=== PATIENT | female | born 1960 | race Caucasian/White ===

== ENCOUNTER 2019-07-10 15:51 | Inpatient (IN) | payer OTHER ==
[2019-07-10 18:04] VITALS: BMI 40.0
--- NOTE | 2019-07-10 19:55 | HP ---
CIWA Score Nausea/Vomitin-No Nausea/No Vomiting Muscle Tremors: None Anxiety: 1-Mildly Anxious Agitation: 0-Normal Activity Paroxysmal Sweats: No Perspiration Orientation: 0-Oriented Tacttile Disturbances: 0-None Auditory Disturbances: 1-Very Mild Visual Disturbances: 0-None Headache: 0-None Present CIWA-Ar Total Score: 2 - Admission Criteria OASAS Guidelines: Admission for Medically Managed Detox: Requires at least one of the followin. CIWA greater than 12 2. Seizures within the past 24 hours 3. Delirium tremens within the past 24 hours 4. Hallucinations within the past 24 hours 5. Acute intervention needed for co occurring medical disorder 6. Acute intervention needed for co occurring psychiatric disorder 7. Severe withdrawal that cannot be handled at a lower level of care (continued vomiting, continued diarrhea, abnormal vital signs) requiring intravenous medication and/or fluids 8. Admission ROS S - HPI Allergies/Adverse Reactions: Allergies Allergy/AdvReac Type Severity Reaction Status Date / Time No Known Allergies Allergy Verified 07/10/19 17:55 History of Present Illness: pt her reporting etoh use , claims 1 bottle wine /day since 12 years ago , latest use Saturday , had tremors the next day , currently asymptomatic. Denies blackouts, seizures , reports tremors if not drinking alcohol. currently reports etoh cravings pmHX : thrombocytopenia , anemia PSHX : R knee , R ankle x 2 , tonsillectomy , gastric bypass ( 2004) , C-sx x 2 , appy , marlo, lipoma r axilla, tummy tuck Exam Limitations: No Limitations - Ebola screening Have you traveled outside of the country in the last 21 days: No Have you had contact with anyone from an Ebola affected area: No Do you have a fever: No - Review of Systems Constitutional: No Symptoms Reported EENT: reports: No Symptoms Reported Respiratory: reports: No Symptoms reported Cardiac: reports: No Symptoms Reported GI: reports: See HPI : reports: No Symptoms Reported Musculoskeletal: reports: See HPI, Joint Pain (r ankle sometimes) Integumentary: reports: See HPI, Bruising Neuro: reports: No Symptoms reported Endocrine: reports: No Symptoms Reported Hematology: reports: See HPI, Easy Bruising Psychiatric: reports: Orientated x3, Anxious Patient History - Smoking Cessation Smoking history: Never smoked - Substances abused Alcohol Substance route: Oral Frequency: Daily Amount used: 2 big bottles wine 6 or 7 beers. Age of first use: 26 Date of last use: 07/07/19 Admission Physical Exam BHS - Vital Signs Vital Signs: Vital Signs - 24 hr 07/10/19 07/10/19 17:56 18:58 Temperature 97.4 F L 97.4 F L Pulse Rate 93 H 93 H Respiratory 16 16 Rate Blood Pressure 132/76 132/76 - Physical General Appearance: Yes: No Apparent Distress, Anxious HEENTM: Yes: EOMI, Hearing grossly Normal, Normocephalic, Normal Voice Respiratory: Yes: Chest Non-Tender, Lungs Clear, Normal Breath Sounds, No Respiratory Distress, No Accessory Muscle Use Neck: Yes: No masses,lesions,Nodules, Trachea in good position Cardiology: Yes: Regular Rhythm, Regular Rate, S1, S2 Abdominal: Yes: Soft, Protuberent Musculoskeletal: Yes: Joint Stiffness (r ankle), Joint swelling (r ankle) Extremities: Yes: Swelling (r ankle) Neurological: Yes: Fully Oriented, Alert, Motor Strength 5/5, Normal Mood/Affect Integumentary: Yes: Warm, Other (scattered small ecchymotic areas bilateral LE) - Diagnostic (1) Alcohol use disorder, mild, in early remission Current Visit: Yes Status: Acute Breathalyzer - Breathalyzer Breathalyzer: 0 Urine Drug Screen - Test Device Lot number: [id number] Expiration date: 03/25/21 - Control Is test valid?: Yes - Results Drug screen NEGATIVE: Yes Inpatient Rehab Admission - Rehab Decision to Admit Inpatient rehab admission?: Yes - Initial Determination Are CD services needed?: Yes Free of communicable disease: Yes Not in need of hospitalization: Yes - Rehab Admission Criteria Previous failed treatment: No Poor recovery environment: No Comorbidities: No Lacks judgement: Yes Patient is meeting Inpatient Rehab admission criteria:: Yes
[2019-07-10] MEDS ORDERED: guaiFENesin 200 MG/10 ML 10 ML UNIT-DOSE CUPS PO PRN (19:58)
[2019-07-10] MEDS ORDERED: MAGNESIUM HYDROX 2400MG/30ML ORAL SUSPENSION 30 ML CUP PO PRN (19:58)
[2019-07-10] MEDS ORDERED: MAGNESIUM CITRATE 300 ML BOTTLE PO PRN (19:58)
[2019-07-10] MEDS ORDERED: MAG HYDROX/AL HYDROX/SIMETH 30 ML UNIT-DOSE CUP PO PRN (19:58)
[2019-07-10] MEDS ORDERED: LOPERAMIDE HCL 2 MG CAPSULE PO PRN (19:58)
[2019-07-10] MEDS ORDERED: MENTHOL/PHENOL 1 EACH UD MM PRN (19:58)
[2019-07-10] MEDS ORDERED: P-EPHED 60MG/TRIPROLIDI 2.5MG TABLET PO PRN (19:58)
[2019-07-10] MEDS: MELATONIN 5 MG TABLETS PO PRN (21:25)
[2019-07-10] MEDS: THIAMINE HCL 100 MG TABLET (FP) PO SCH (21:25)
[2019-07-10] MEDS ORDERED: TUBERCULIN PPD 5 TU/0.1ML VIAL ID ONE ×2 (21:27→23:09)
[2019-07-10] MEDS: ALBUTEROL SO4 8 GM HFA INHALER IH SCH (21:28)
[2019-07-10] MEDS ORDERED: ALBUTEROL SULFATE PO SCH (22:00)
[2019-07-11] MEDS: ALBUTEROL SO4 8 GM HFA INHALER IH SCH ×5 (06:56→21:15)
[2019-07-11] MEDS ORDERED: PATIENT'S OWN MEDICATION (NON-FORMULARY) (Omeprazole [Omeprazole] 40 MG) PO SCH (10:00)
[2019-07-11] MEDS: PANTOPRAZOLE 40 MG TABLET (FP) PO SCH (10:34)
[2019-07-11] MEDS: PRENATAL VITAMINS W/ FOLIC ACID TABLET (FP) PO SCH (10:34)
[2019-07-11 10:39] LABS: HEMATOCRIT 23.7 % (32.4-45.2); HEMOGLOBIN 7.9 GM/dL (10.7-15.3); MCHC 33.4 g/dl (32.0-36.0); MEAN CELL VOLUME 122.4 fl (80-96); MEAN PLT VOLUME 9.1 fl (7.5-11.1); RBC 1.94 M/mm3 (3.60-5.2); RDW 16.8 % (11.6-15.6); WHITE BLOOD COUNT 2.4 K/mm3 (4.0-10.0)
[2019-07-11 10:42] LABS: ALBUMIN 2.8 g/dl (3.4-5.0); BILIRUBIN,TOTAL 0.7 mg/dL (0.2-1); BLOOD UREA NITROGEN 11.6 mg/dL (7-18); CALCIUM 8.1 mg/dL (8.5-10.1); CREATININE 0.4 mg/dL (0.55-1.3); POTASSIUM 3.5 mmol/L (3.5-5.1)
[2019-07-11] MEDS ORDERED: PT OWN MED DRAWER 7, Y5N ONE (10:51)
[2019-07-11 11:02] LABS: MCH 40.9 pg (25.7-33.7); PLATELET COUNT 13 K/MM3 (134-434)
[2019-07-11] MEDS ORDERED: ACETAMINOPHEN 325 MG TABLET (FP) PO PRN (12:38)
[2019-07-11] MEDS: COPPER GLUCONATE 2 MG PO SCH (12:43)
--- NOTE | 2019-07-11 16:25 | CONSULT ---
[facility] Psychiatric Consult - Data Date of interview: 07/11/19 Admission source: Self-referral. Identifying data: First visit to [facility] and direct admission to [address] for this 59 y/o [place]-born female for rehabilitative care to address alcohol dependence co-morbid with MDD + Anxiety Disorder. Patient is interviewed in the presence of a director of pulmonary unit, director community health nursing Ms Tellez (with patient's verbal authorization). She is (now ), mother of three , domiciled, unemployed and supported by relatives. Substance Abuse History: Discussed with the patient. Details in current [facility] report as follows : Smoking history: Never smoked. Substances abused. Alcohol. Substance route: Oral. Frequency: Daily. Amount used: 2 big bottles wine 6 or 7 beers. Age of first use: 26. Date of last use: 07/07/19 Medical History: Medical profile is remarkable for anemia, thrombocytopenia, obesity, antecedents of orthopedic injuries (right knee + right ankle), tonsillectomy, cholecystectomy, lipoma (tight axilla), gastric bypass (2004) and history of two sections. Psychiatric History: Patient denies history of psychiatric hospitalizations. She indicates, however, a brief history of outpatient psychiatric follow-up with a private psychiatrist for anxiety and insomnia. Dropped out of care several months ago. Patient denies history of suicide attempts. Physical/Sexual Abuse/Trauma History: Stresors : marital discord, financial issues, unemployment and alcohol addiction. Additional Comment: Negative toxicology. Mental Status Exam - Mental Status Exam Alert and Oriented to: Time, Place, Person Cognitive Function: Good Patient Appearance: Well Groomed (short stature, obese) Mood: Hopeful, Euthymic Affect: Appropriate, Normal Range Patient Behavior: Appropriate, Cooperative (friendly) Speech Pattern: Clear, Appropriate Voice Loudness: Normal Thought Process: Intact, Goal Oriented Thought Disorder: Not Present Hallucinations: Denies Suicidal Ideation: Denies Homicidal Ideation: Denies Insight/Judgement: Fair Sleep: Poorly, Difficulty falling asleep Appetite: Good Gait/Station: Normal Psychiatric Findings - Problem List ([place] 1, 2,3) (1) Alcohol use disorder, mild, in early remission Current Visit: Yes Status: Acute (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 Sleep hygiene. Support. Groups. MAT services : discussed in this session. AA meetings. Motivational counseling. Insomnia is addressed with mirtazapine 7.5 mg po hs. Side effects/benefits discussed with patient. Ms Dixon gave verbal consent to . Observation.
[2019-07-11] MEDS: hydrOXYzine PAMOATE 50 MG CAPSULE (FP) PO PRN (16:43)
[2019-07-11] MEDS: THIAMINE HCL 100 MG TABLET (FP) PO SCH (21:14)
[2019-07-11] MEDS: MELATONIN 5 MG TABLETS PO PRN (21:14)
[2019-07-11] MEDS: MIRTAZAPINE 15 MG TABLET (FP) PO SCH (21:15)
[2019-07-12] MEDS: ALBUTEROL SO4 8 GM HFA INHALER IH SCH ×5 (06:18→21:13)
--- NOTE | 2019-07-12 08:21 | PN ---
[facility] Progress Note Note: CLIENT SEEN FOR ABNORMAL PLATELET OF 13. CLIENT REPORTS HX BUT DOES NOT KNOW HER BASE LINE. SHE DENIES ANY COMPLAINTS TO INCLUDE NOSE BLEEDS, BLOODING STOOL, BLEEDING OF GUMS. PATIENT TEACHING REINFORCED. CLIENT MADE AWARE TO REPORTS ANY BLEEDING ISSUES IMMEDIATELY. P- WILL REPEAT CBC CLIENT THERE IS NO PREVIOUS LABS TO COMPARE BLEEDING PRECAUTION MONITOR CLINICALLY. CONSIDER TRANSFER TO [facility] FOR FURTHER EVAL AFTER REPEAT LABS. Abnormal Lab Results 07/11/19 07/11/19 07:55 07:55 WBC 2.4 L RBC 1.94 L Hgb 7.9 L Hct 23.7 L MCV 122.4 H MCH 40.9 H RDW 16.8 H Plt Count 13 L* Anion Gap 6 L Creatinine 0.4 L Calcium 8.1 L Alkaline Phosphatase 139 H Total Protein 6.0 L Albumin 2.8 L
[2019-07-12] MEDS: PRENATAL VITAMINS W/ FOLIC ACID TABLET (FP) PO SCH (10:05)
[2019-07-12] MEDS: COPPER GLUCONATE 2 MG PO SCH (10:06)
[2019-07-12] MEDS: PANTOPRAZOLE 40 MG TABLET (FP) PO SCH (10:06)
[2019-07-12] MEDS: hydrOXYzine PAMOATE 50 MG CAPSULE (FP) PO PRN ×2 (15:36→19:44)
[2019-07-12] MEDS: MIRTAZAPINE 15 MG TABLET (FP) PO SCH (21:14)
[2019-07-12] MEDS: THIAMINE HCL 100 MG TABLET (FP) PO SCH (21:14)
[2019-07-12] MEDS: MELATONIN 5 MG TABLETS PO PRN (21:14)
[2019-07-13] MEDS: ALBUTEROL SO4 8 GM HFA INHALER IH SCH (07:11)
[2019-07-13] MEDS: hydrOXYzine PAMOATE 50 MG CAPSULE (FP) PO PRN (07:15)
[2019-07-13] MEDS ORDERED: ALBUTEROL SO4 8 GM HFA INHALER IH PRN (08:50)
[2019-07-13] MEDS: COPPER GLUCONATE 2 MG PO SCH (10:13)
[2019-07-13] MEDS: PANTOPRAZOLE 40 MG TABLET (FP) PO SCH (10:13)
[2019-07-13] MEDS: PRENATAL VITAMINS W/ FOLIC ACID TABLET (FP) PO SCH (10:13)
[2019-07-13 12:17] LABS: BASO % 0.2 % (0-2.0); EOS % 0.3 % (0-4.5); HEMATOCRIT 23.1 % (32.4-45.2); HEMOGLOBIN 7.8 GM/dL (10.7-15.3); LYMPH % 68.2 % (8-40); MCHC 33.6 g/dl (32.0-36.0); MEAN CELL VOLUME 122.9 fl (80-96); MEAN PLT VOLUME 8.5 fl (7.5-11.1); MONO % 7.4 % (3.8-10.2); NEUT % 23.9 % (42.8-82.8); RBC 1.88 M/mm3 (3.60-5.2); RDW 17.1 % (11.6-15.6); WHITE BLOOD COUNT 2.1 K/mm3 (4.0-10.0)
[2019-07-13 12:19] LABS: MCH 41.4 pg (25.7-33.7)
[2019-07-13 12:22] LABS: PLATELET COUNT 18 K/MM3 (134-434)
--- NOTE | 2019-07-13 12:48 | PN ---
[facility] Progress Note Note: Patient is a 59 year old female admitted to rehab for alcohol dependence. This is first admission to [facility]. Patient has hx of drinking one bottle of wine and 6-7 beers daily x 12 years. Denies hx of blackouts, seizures. + hx of tremors. Last drink 07/06/19. PMH: anemia, low plts, gastric bypass in 2004. Treated in [facility]. Patient seen for abnormal labs. ROS: + nausea with one episode of vomiting today (unwitnessed), mild dizziness and reports feeling tired. Vital Signs Temperature 97.9 F 07/13/19 07:42 Pulse Rate 88 07/13/19 07:42 Respiratory Rate 18 07/13/19 07:42 Blood Pressure 115/69 07/13/19 07:42 O2 Sat by Pulse Oximetry (%) Laboratory Tests 07/11/19 07/11/19 07/11/19 07:55 07:55 07:55 WBC 2.4 L RBC 1.94 L Hgb 7.9 L Hct 23.7 L MCV 122.4 H MCH 40.9 H MCHC 33.4 RDW 16.8 H Plt Count 13 L* MPV 9.1 Absolute Neuts (auto) Neutrophils % Lymphocytes % Monocytes % Eosinophils % Basophils % Nucleated RBC % Manual Slide Review Smear reviewed Platelet Comment No clumping noted Sodium 139 Potassium 3.5 Chloride 106 Carbon Dioxide 26 Anion Gap 6 L BUN 11.6 Creatinine 0.4 L Est GFR (CKD-EPI)AfAm 133.07 Est GFR (CKD-EPI)NonAf 114.81 Random Glucose 91 Calcium 8.1 L Total Bilirubin 0.7 AST 20 ALT 17 Alkaline Phosphatase 139 H Total Protein 6.0 L Albumin 2.8 L RPR Titer Nonreactive 07/13/19 08:00 WBC 2.1 L RBC 1.88 L Hgb 7.8 L Hct 23.1 L MCV 122.9 H MCH 41.4 H MCHC 33.6 RDW 17.1 H Plt Count 18 L* D MPV 8.5 Absolute Neuts (auto) 0.5 L Neutrophils % 23.9 L Lymphocytes % 68.2 H Monocytes % 7.4 Eosinophils % 0.3 Basophils % 0.2 Nucleated RBC % 0 Manual Slide Review Platelet Comment Sodium Potassium Chloride Carbon Dioxide Anion Gap BUN Creatinine Est GFR (CKD-EPI)AfAm Est GFR (CKD-EPI)NonAf Random Glucose Calcium Total Bilirubin AST ALT Alkaline Phosphatase Total Protein Albumin RPR Titer PE: alert and oriented x 3 skin warm and dry +perrla, eoms intact bl sclera mildly icteric bl car s1s2, rrr resp cta bl gi nt, nd, bs+ ext full rom, no tremors amb ad mima A/P: Anemia Thrombocytopenia Transfer to [facility] ED for evaluation Report given to Dr. Cowan
[2019-07-13 12:56] LABS: ANISOCYTOSIS 1+; MACROCYTOSIS 3+; PLATELET ESTIMATE DECREASED
[2019-07-13 13:07] VITALS: BP 123/76; PULSE 98; TEMP 97.3
== END 2019-07-13 22:20 | disposition short-term general hospital (02) | DRG 772 ==
LOC: YASAS 15:51 → Y3E 19:43
PROVIDERS: ADMIT Neuromusculoskeletal Medicine & OMM; ATTEND Neuromusculoskeletal Medicine & OMM
PROC: HZ42ZZZ Group Counseling for Substance Abuse Treatment, Cognitive-Behavioral (ICD-10-PCS; principal; 2019-07-10)
DX: F10.20 Alcohol dependence, uncomplicated (principal); F10.280 Alcohol dependence with alcohol-induced anxiety disorder; G47.00 Insomnia, unspecified; D69.6 Thrombocytopenia, unspecified; D64.9 Anemia, unspecified; D17.1 Benign lipomatous neoplasm of skin and subcutaneous tissue of trunk; E66.9 Obesity, unspecified; Z68.41 Body mass index [BMI] 40.0-44.9, adult; Z98.84 Bariatric surgery status; Z90.49 Acquired absence of other specified parts of digestive tract
CPT/HCPCS: 36415; 80053; 85025; 85027; 86593

== ENCOUNTER 2019-07-13 13:59 | Inpatient (IN) | payer OTHER ==
[2019-07-13 14:21] VITALS: BMI 39.8
[2019-07-13 15:36] LABS: BASO % 0.1 % (0-2.0); EOS % 0.2 % (0-4.5); HEMOGLOBIN 7.5 GM/dL (10.7-15.3); LYMPH % 65.3 % (8-40); MCHC 32.7 g/dl (32.0-36.0); MEAN CELL VOLUME 123.8 fl (80-96); MEAN PLT VOLUME 8.6 fl (7.5-11.1); MONO % 9.7 % (3.8-10.2); NEUT % 24.7 % (42.8-82.8); RBC 1.86 M/mm3 (3.60-5.2); RDW 16.8 % (11.6-15.6); WHITE BLOOD COUNT 2.4 K/mm3 (4.0-10.0)
[2019-07-13 15:41] LABS: MCH 40.4 pg (25.7-33.7)
[2019-07-13 15:43] LABS: PLATELET COUNT 15 K/MM3 (134-434)
[2019-07-13 15:55] LABS: PROTHROMBIN TIME (PATIENT) 11.8 SEC (9.7-13.0)
[2019-07-13 15:59] LABS: ALBUMIN 2.7 g/dl (3.4-5.0); BILIRUBIN,TOTAL 0.5 mg/dL (0.2-1); BLOOD UREA NITROGEN 10.7 mg/dL (7-18); CALCIUM 8.4 mg/dL (8.5-10.1); CREATININE 0.5 mg/dL (0.55-1.3); TOT PROT 5.8 g/dl (6.4-8.2)
--- NOTE | 2019-07-13 16:11 | PDOC ---
Documentation entered by Andrea Simpson SCRIBE, acting as scribe for Gary Nation MD. aGry Nation MD: This documentation has been prepared by the Calvin scott Daniel, SCRIBE, under my direction and personally reviewed by me in its entirety. I confirm that the documentation accurately reflects all work, treatment, procedures, and medical decision making performed by me. Attending Attestation - Resident Resident Name: Jorge Walker - ED Attending Attestation I have performed the following: I have examined & evaluated the patient, The case was reviewed & discussed with the resident, I agree w/resident's findings & plan, Exceptions are as noted - HPI HPI: 07/13/19 15:42 The patient is a 59 year old female with a past medical history of anemia and gastric bypass here today from [facility] for evaluation of generalized weakness and rectal bleeding, as well as abnormal labs. The patient reports that she is in [facility] for alcohol detox (last drink 12 days ago). She complains of general weakness, lightheadedness, and exertional palpitations. Pt reports that today She also states that she noticed bright red blood in her stool 1 week ago as well as once today. Denies dark tarry stools. Denies hematemesis. Patient denies headache, lightheadedness. Denies fever, chills. Denies chest pain, shortness of breath. Denies nausea, diarrhea, abdominal pain. Per [facility] staff, pt had low Hb today, as well as low platelets on routine bloodwork. Allergies: NKA - Physicial Exam PE: 07/13/19 15:42 GENERAL: Awake, alert, and fully oriented, in no acute distress. HEAD: No signs of trauma EYES: PERRLA, EOMI, sclera anicteric, conjunctiva clear ENT: Auricles normal inspection, hearing grossly normal, nares patent, oropharynx clear without exudates. Moist mucosa NECK: Nontender, no stepoffs, Normal ROM, supple, no lymphadenopathy, JVD, or masses LUNGS: Breath sounds equal, clear to auscultation bilaterally. No wheezes, and no crackles HEART: Regular rate and rhythm, normal S1 and S2, no murmurs, rubs or gallops ABDOMEN: Soft, nontender, normoactive bowel sounds. No guarding, no rebound. No masses EXTREMITIES: Normal range of motion, no edema. No clubbing or cyanosis. No cords, erythema, or tenderness NEUROLOGICAL: Cranial nerves II through XII intact. 5/5 strength and sensation in all extremities, Normal speech, normal gait, normal cerebellar function SKIN: Warm, Dry, normal turgor, no rashes or lesions noted. - Medical Decision Making 07/13/19 16:17 59 F with pancytopenia as well as possible GI bleed. - Labs - Stool guaiac - Transfuse PRN - Admit
[2019-07-13 16:39] LABS: MACROCYTOSIS 2+; PLATELET ESTIMATE DECREASED
--- NOTE | 2019-07-13 17:25 | PDOC ---
History of Present Illness - General Chief Complaint: Weakness Stated Complaint: Abnormal Lab Results Time Seen by Provider: 07/13/19 14:17 History Source: Patient, Old Records (Rehab records) Exam Limitations: No Limitations - History of Present Illness Initial Comments: 07/13/19 17:24 59F with a PMH of MDD w/ anxiety, anemia, thrombocytopenia, obesity, antecedents of orthopedic injuries (right knee + right ankle), tonsillectomy, cholecystectomy, lipoma (tight axilla), gastric bypass (2004) who presents to the ER from the rehab facility (for EtOH) for thrombocytopenia and anemia. Pt denies fever, chills, nausea, vomiting but admits to hematochezia without hematuria, syncope, palpitations, CP, SOB. Past History - Past Medical History Allergies/Adverse Reactions: Allergies Allergy/AdvReac Type Severity Reaction Status Date / Time No Known Allergies Allergy Verified 07/13/19 14:17 Home Medications: Ambulatory Orders NK [No Known Home Medication] 07/13/19 Asthma: No Cardiac Disorders: No COPD: No Diabetes: No GI Disorders: No Disorders: No HTN: No Kidney Stones: No Seizures: No - Surgical History Abdominal Surgery: No Appendectomy: Yes Cardiac Surgery: No Cholecystectomy: No Lung Surgery: No Neurologic Surgery: No Orthopedic Surgery: Yes (RT KNEE) - Psycho Social/Smoking Cessation Hx Smoking History: Unknown if ever smoked Have you smoked in the past 12 months: No Information on smoking cessation initiated: No Hx Alcohol Use: Yes (alcohol everyday.) Drug/Substance Use Hx: No Hx Substance Use Treatment: No Review of Systems - Review of Systems Able to Perform ROS?: Yes Comments:: 07/13/19 17:53 GENERAL/CONSTITUTIONAL: No fever or chills. No weakness. HEAD, EYES, EARS, NOSE AND THROAT: No change in vision. No ear pain or discharge. No sore throat. CARDIOVASCULAR: No chest pain, palpitations, or lightheadedness. RESPIRATORY: No cough, wheezing, shortness of breath, or hemoptysis. GASTROINTESTINAL: + for hematochezia. No abdominal pain, nausea, vomiting, diarrhea, or constipation. GENITOURINARY: No dysuria, frequency, hematuria, or change in urination. MUSCULOSKELETAL: No joint or muscle swelling or pain. No neck or back pain. SKIN: No rash or lesions. NEUROLOGIC: No headache, numbness, tingling, focal weakness, loss of consciousness, or change in strength/sensation. ENDOCRINE: No increased thirst. No abnormal weight change. HEMATOLOGIC/LYMPHATIC: + for anemia and thrombocytopenia. ALLERGIC/IMMUNOLOGIC: No hives or skin allergy. Is the patient limited Yakut proficient: No *Physical Exam - Vital Signs Last Vital Signs Temp Pulse Resp BP Pulse Ox 98.0 F 85 16 112/50 L 100 07/13/19 14:00 07/13/19 14:00 07/13/19 14:00 07/13/19 14:00 07/13/19 15:24 - Physical Exam Comments: 07/13/19 17:54 GENERAL: Well developed, well nourished. Awake and alert. No acute distress. HEENT: Normocephalic, atraumatic. Hearing grossly normal. Moist mucous membranes. PERRLA, EOMI. No conjunctival pallor. Sclera are non-icteric. NECK: Supple. Full ROM. No JVD. CARDIOVASCULAR: Regular rate and rhythm. No murmurs, rubs, or gallops. PULMONARY: No evidence of respiratory distress. Lungs clear to auscultation bilaterally. No wheezing, rales or rhonchi. ABDOMINAL: Soft. Non-tender. Non-distended. No rebound or guarding. RECTAL: External hemorrhoids noted. No gross blood. GENITOURINARY: No CVA tenderness bilaterally. MUSCULOSKELETAL: Normal range of motion at all joints. No bony deformities or tenderness. EXTREMITIES: No cyanosis. No clubbing. No edema. No calf tenderness or swelling. SKIN: Warm and dry. Normal capillary refill. No rashes. No jaundice. NEUROLOGICAL: Alert, awake, appropriate. Cranial nerves 2-12 grossly intact. Normal speech. Gait is normal without ataxia. PSYCHIATRIC: Cooperative. Good eye contact. Appropriate mood and affect. ED Treatment Course - LABORATORY CBC & Chemistry Diagram: 07/13/19 14:52 07/13/19 14:52 - ADDITIONAL ORDERS Additional order review: Laboratory Results 07/13/19 07/13/19 07/13/19 14:52 14:52 14:52 PT with INR 11.80 INR 1.00 Sodium 140 Potassium 4.0 Chloride 107 Carbon Dioxide 28 Anion Gap 4 L BUN 10.7 Creatinine 0.5 L Est GFR (CKD-EPI)AfAm 123.65 Est GFR (CKD-EPI)NonAf 106.68 Random Glucose 74 Calcium 8.4 L Total Bilirubin 0.5 AST 20 ALT 16 Alkaline Phosphatase 135 H Total Protein 5.8 L Albumin 2.7 L Blood Type A POSITIVE Antibody Screen Negative 07/13/19 14:52 RBC 1.86 L MCV 123.8 H MCHC 32.7 RDW 16.8 H MPV 8.6 Neutrophils % 24.7 L Lymphocytes % 65.3 H Monocytes % 9.7 Eosinophils % 0.2 Basophils % 0.1 Medical Decision Making - Medical Decision Making 07/13/19 17:58 59F with MMP including anemia (after gastric bypass) and thrombocytopenia, sent from rehab for evaluation of anemia and thrombocytopenia. Pt admits to diffuse ecchymosis. Stool occult negative. Hgb 7.5. Platelets 15. Giving 1 unit platelets and admitting. 07/13/19 18:[address] Guzman for admission. Discharge - Discharge Information Problems reviewed: Yes Clinical Impression/Diagnosis: Thrombocytopenia Anemia Qualifiers: Anemia type: unspecified type Qualified Code(s): D64.9 - Anemia, unspecified Condition: Guarded - Admission Yes - Follow up/Referral Referrals: ON STAFF,NOT [Primary Care Provider] - - Patient Discharge Instructions - Post Discharge Activity
--- NOTE | 2019-07-13 20:53 | HP ---
Admitting History and Physical - Primary Care Physician PCP: Ewa Guzman - Admission History of Present Illness: 59 year old female with a past medical history of anemia and gastric bypass here today from [facility] for evaluation of generalized weakness and rectal bleeding, as well as abnormal labs. The patient reports that she is in [facility] for alcohol detox (last drink 12 days ago). She complains of general weakness, lightheadedness, and exertional palpitations. Pt reports that today She also states that she noticed bright red blood in her stool 1 week ago as well as once today. Denies dark tarry stools. Denies hematemesis. - Smoking History Smoking history: Unknown if ever smoked Have you smoked in the past 12 months: No - Alcohol/Substance Use Hx Alcohol Use: Yes (alcohol everyday.) Home Medications - Allergies Allergies/Adverse Reactions: Allergies Allergy/AdvReac Type Severity Reaction Status Date / Time No Known Allergies Allergy Verified 07/13/19 14:17 - Home Medications Home Medications: Ambulatory Orders NK [No Known Home Medication] 07/13/19 Physical Examination Vital Signs: Vital Signs Temperature 98.6 F 07/13/19 18:16 Pulse Rate 82 07/13/19 18:16 Respiratory Rate 19 07/13/19 18:16 Blood Pressure 113/58 L 07/13/19 18:16 O2 Sat by Pulse Oximetry (%) 100 07/13/19 18:16 Constitutional: Yes: No Distress HENT: Yes: Atraumatic Neck: Yes: Supple Cardiovascular: Yes: Regular Rate and Rhythm Respiratory: Yes: CTA Bilaterally Gastrointestinal: Yes: Normal Bowel Sounds Extremities: Yes: WNL Neurological: Yes: Alert, Oriented Labs: CBC, BMP 07/13/19 14:52 07/13/19 14:52 Problem List - Problems (1) Alcohol use disorder, mild, in early remission Assessment/Plan: was in rehab [facility] from rehab Code(s): F10.11 - ALCOHOL ABUSE, IN REMISSION (2) Anemia Assessment/Plan: possibly due to etoh? will transfuse heme consult Code(s): D64.9 - ANEMIA, UNSPECIFIED Qualifiers: Anemia type: unspecified type Qualified Code(s): D64.9 - Anemia, unspecified (3) Thrombocytopenia Assessment/Plan: transfuse platelets heme consult Code(s): D69.6 - THROMBOCYTOPENIA, UNSPECIFIED (4) Pancytopenia Code(s): D61.818 - OTHER PANCYTOPENIA Assessment/Plan Laboratory Tests 07/13/19 07/13/19 07/13/19 14:52 14:52 14:52 WBC 2.4 L RBC 1.86 L Hgb 7.5 L Hct 23.0 L MCV 123.8 H MCH 40.4 H MCHC 32.7 RDW 16.8 H Plt Count 15 L* MPV 8.6 Absolute Neuts (auto) 0.6 L Neutrophils % 24.7 L Neutrophils % (Manual) 19.0 L Band Neutrophils % 3.0 Lymphocytes % 65.3 H Lymphocytes % (Manual) 65.0 H Monocytes % 9.7 Monocytes % (Manual) 9 D Eosinophils % 0.2 Eosinophils % (Manual) 0.0 Basophils % 0.1 Basophils % (Manual) 0.0 Nucleated RBC % 1 H Platelet Estimate Decreased Platelet Comment No clumping noted Macrocytosis 2+ PT with INR 11.80 INR 1.00 Sodium 140 Potassium 4.0 Chloride 107 Carbon Dioxide 28 Anion Gap 4 L BUN 10.7 Creatinine 0.5 L Est GFR (CKD-EPI)AfAm 123.65 Est GFR (CKD-EPI)NonAf 106.68 Random Glucose 74 Calcium 8.4 L Total Bilirubin 0.5 AST 20 ALT 16 Alkaline Phosphatase 135 H Total Protein 5.8 L Albumin 2.7 L Stool Occult Blood Blood Type Antibody Screen 07/13/19 07/13/19 07/13/19 14:52 16:50 16:56 WBC RBC Hgb Hct MCV MCH MCHC RDW Plt Count MPV Absolute Neuts (auto) Neutrophils % Neutrophils % (Manual) Band Neutrophils % Lymphocytes % Lymphocytes % (Manual) Monocytes % Monocytes % (Manual) Eosinophils % Eosinophils % (Manual) Basophils % Basophils % (Manual) Nucleated RBC % Platelet Estimate Platelet Comment Macrocytosis PT with INR INR Sodium Potassium Chloride Carbon Dioxide Anion Gap BUN Creatinine Est GFR (CKD-EPI)AfAm Est GFR (CKD-EPI)NonAf Random Glucose Calcium Total Bilirubin AST ALT Alkaline Phosphatase Total Protein Albumin Stool Occult Blood Negative Blood Type A POSITIVE A POSITIVE Antibody Screen Negative Negative Active Medications Generic Name Dose Route Start Last Admin Trade Name Freq PRN Reason Stop Dose Admin Acetaminophen 650 mg 07/14/19 05:54 07/14/19 12:47 Tylenol - PO 650 mg Q6H PRN Administration PAIN LEVEL 1-5 Active Medications Generic Name Dose Route Start Last Admin Trade Name Freq PRN Reason Stop Dose Admin Acetaminophen 650 mg 07/14/19 05:54 07/14/19 12:47 Tylenol - PO 650 mg Q6H PRN Administration PAIN LEVEL 1-5
[2019-07-14] MEDS ORDERED: PNEUMOC 13-VAL CONJ-DIP CRM/PF 0.5 ML DISP.SYRIN IM ONE (03:26)
[2019-07-14] MEDS ORDERED: PNEUMOCOCCAL 23 VACCINE 0.5 ML VIAL IM ONE ×2 (05:45→10:00)
[2019-07-14] MEDS: ACETAMINOPHEN 325 MG TABLET (FP) PO PRN ×2 (06:24→12:47)
--- NOTE | 2019-07-14 06:35 | CON.GI ---
Consult - History of Present Illness History of Present Illness: gi consult dictated - Past Medical History ...: No - Alcohol/Substance Use Hx Alcohol Use: Yes (alcohol everyday.) - Smoking History Smoking history: Unknown if ever smoked Have you smoked in the past 12 months: No Home Medications - Allergies Allergies/Adverse Reactions: Allergies Allergy/AdvReac Type Severity Reaction Status Date / Time No Known Allergies Allergy Verified 07/13/19 14:17 - Home Medications Home Medications: Ambulatory Orders NK [No Known Home Medication] 07/13/19 Physical Exam-GI Vital Signs: Vital Signs Temperature 98.6 F 07/14/19 02:00 Pulse Rate 82 07/14/19 02:00 Respiratory Rate 20 07/14/19 02:00 Blood Pressure 118/62 07/14/19 02:00 O2 Sat by Pulse Oximetry (%) 100 07/13/19 20:00 Labs: CBC, BMP 07/13/19 14:52 07/13/19 14:52 INR, PTT INR 1.00 (0.83-1.09) 07/13/19 14:52
[2019-07-14 09:31] LABS: ALBUMIN 2.4 g/dl (3.4-5.0); BILIRUBIN,TOTAL 0.7 mg/dL (0.2-1); BLOOD UREA NITROGEN 9.8 mg/dL (7-18); CALCIUM 8.5 mg/dL (8.5-10.1); CREATININE 0.5 mg/dL (0.55-1.3); POTASSIUM 3.6 mmol/L (3.5-5.1); TOT PROT 5.5 g/dl (6.4-8.2)
[2019-07-14 09:32] LABS: BASO % 0.1 % (0-2.0); EOS % 0.4 % (0-4.5); HEMATOCRIT 21.6 % (32.4-45.2); HEMOGLOBIN 7.2 GM/dL (10.7-15.3); MCHC 33.2 g/dl (32.0-36.0); MEAN CELL VOLUME 122.8 fl (80-96); MEAN PLT VOLUME 8.4 fl (7.5-11.1); MONO % 6.8 % (3.8-10.2); NEUT % 32.7 % (42.8-82.8); PLATELET COUNT 58 K/MM3 (134-434); RBC 1.76 M/mm3 (3.60-5.2); RDW 17.2 % (11.6-15.6)
[2019-07-14 09:44] LABS: MCH 40.7 pg (25.7-33.7)
[2019-07-14 09:47] LABS: WHITE BLOOD COUNT 1.4 K/mm3 (4.0-10.0)
[2019-07-14] MEDS ORDERED: FLU VACCINE QUAD 60 MCG/0.5 ML (MDV 19-20) IM ONE (10:00)
--- NOTE | 2019-07-14 10:40 | EKG ---
Test Reason : Blood Pressure : / mmHG Vent. Rate : 088 BPM Atrial Rate : 088 BPM P-R Int : 162 ms QRS Dur : 078 ms QT Int : 398 ms P-R-T Axes : 049 009 -06 degrees QTc Int : 481 ms POOR DATA QUALITY, INTERPRETATION MAY BE ADVERSELY AFFECTED NORMAL SINUS RHYTHM CANNOT RULE OUT INFERIOR INFARCT , AGE UNDETERMINED ANTERIOR INFARCT , AGE UNDETERMINED ABNORMAL ECG Confirmed by MD AZEB, FESTUS ([id number]) on 07/14/2019 10:40:06 AM Referred By: Confirmed By:FESTUS BOWIE MD
--- NOTE | 2019-07-14 12:19 | PN ---
Progress Note, Physician - Current Medication List Current Medications: Active Medications Acetaminophen (Tylenol -) 650 mg PO Q6H PRN PRN Reason: PAIN LEVEL 1-5 Last Admin: 07/14/19 06:24 Dose: 650 mg - Objective Vital Signs: Vital Signs Temperature 97.5 F L 07/14/19 08:48 Pulse Rate 88 07/14/19 08:48 Respiratory Rate 20 07/14/19 08:48 Blood Pressure 122/71 07/14/19 08:48 O2 Sat by Pulse Oximetry (%) 100 07/14/19 08:49 Constitutional: Yes: No Distress HENT: Yes: Atraumatic Neck: Yes: Supple Cardiovascular: Yes: Regular Rate and Rhythm Respiratory: Yes: CTA Bilaterally Gastrointestinal: Yes: Normal Bowel Sounds Extremities: Yes: WNL Neurological: Yes: Alert, Oriented Labs: CBC, BMP 07/14/19 08:35 07/14/19 08:35 INR, PTT INR 1.00 (0.83-1.09) 07/13/19 14:52 Problem List - Problems (1) Alcohol use disorder, mild, in early remission Assessment/Plan: was in rehab [facility] Code(s): F10.11 - ALCOHOL ABUSE, IN REMISSION (2) Anemia Assessment/Plan: possibly due to etoh? will transfuse heme consult Code(s): D64.9 - ANEMIA, UNSPECIFIED Qualifiers: Anemia type: unspecified type Qualified Code(s): D64.9 - Anemia, unspecified (3) Thrombocytopenia Assessment/Plan: s/p...transfuse platelets heme consult Code(s): D69.6 - THROMBOCYTOPENIA, UNSPECIFIED (4) Pancytopenia Code(s): D61.818 - OTHER PANCYTOPENIA (5) Alcohol-induced anxiety disorder Code(s): F10.980 - ALCOHOL USE, UNSP WITH ALCOHOL-INDUCED ANXIETY DISORDER (6) Insomnia Code(s): G47.00 - INSOMNIA, UNSPECIFIED
[2019-07-14 12:55] LABS: ANISOCYTOSIS 1+; MACROCYTOSIS 2+; PLATELET ESTIMATE DECREASED
--- NOTE | 2019-07-14 15:04 | CONS ---
GASTROINTESTINAL CONSULTATION DATE OF CONSULTATION: DATE OF DICTATION: 07/14/2019 HISTORY OF PRESENT ILLNESS: The patient is a 59-year-old female. Past medical history of anemia and gastric bypass surgery, also with a history of orthopedic surgeries, appendectomy, and cholecystectomy in the past, as well as asthma. She presented to the hospital with weakness and a couple of episodes of blood on her stool which was bright red in color. She denies any abdominal pain, nausea, vomiting, hematemesis or melena. She states her last upper endoscopy was done within the past couple of weeks at [place]. She reports it to be within normal limits. Also, had a colonoscopy a couple years ago which was normal. PAST MEDICAL AND SURGICAL HISTORY: As listed in the HPI. ALLERGIES: No known drug allergies. HOME MEDICATIONS: Reviewed. PHYSICAL EXAMINATION: Vital Signs: Temperature 97, pulse 88, blood pressure 122/71, respiratory rate 12, oxygen saturation 100% on room air. General: In no acute distress. HEENT: Anicteric sclera. Cardiovascular: S1, S2. Regular rate and rhythm. Lungs: Bilaterally clear to auscultation. Abdomen: Soft and nontender. Extremities: Without edema. LABORATORIES: White blood cell count 1.4, hemoglobin 7.2 and hematocrit 21, MCV 122. Platelet count on admission was 15, currently it is 58. Absolute neutrophils 0.5. INR 1. Sodium 140, potassium 3.6, BUN 9.8, creatinine 0.5, AST 17, ALT 14, alkaline phosphatase 126, total bilirubin 0.7. Stool for occult blood was negative. FAMILY HISTORY: No history of GI or gynecological malignancy. SOCIAL HISTORY: She states she drinks alcohol. Does not smoke or use drugs. IMAGING: No abdominal imaging was performed during this hospitalization. IMPRESSION: Pancytopenia suspicious for an underlying hematological process. RECOMMENDATIONS: Hematology consultation for further management of her neutropenia, and thrombocytopenia, as well as her anemia. I doubt her current anemia is secondary to gastrointestinal blood loss. She does admit to having a colonoscopy done a couple years ago; at which time, she was told she had hemorrhoids and currently she has episodes of rectal bleeding likely attributed to her hemorrhoids. She would benefit from repeat endoscopic examination; however, at this time, would not pursue any invasive procedures, considering she is neutropenic and pancytopenic. Monitor her hemoglobin and hematocrit daily while hospitalized. Avoid additional NSAIDs. Will follow. DO ORLANDO VARNER/[id number]
--- NOTE | 2019-07-14 16:00 | CONSULT ---
Consultation: REQUESTING PROVIDER: HEME/ONC service CONSULT REQUEST: We have been asked to medically evaluate this patient for anemia. HISTORY OF PRESENT ILLNESS: Pt is a 59 y/o F with PMH MDD w/ anxiety, anemia, thrombocytopenia, obesity, antecedents of orthopedic injuries (right knee + right ankle), tonsillectomy, cholecystectomy, lipoma (right axilla), gastric bypass (2004) who presents to the ER from the rehab facility (for EtOH) for thrombocytopenia and anemia. Pt states she had her gastric bypass about 15 years ago at [facility] and took her vitamins for about 4 years. She states that her primary doctor gave her iron supplements to take, but she only takes them sometimes. She states that several months ago, her doctor found her to have low platelets, but she does not know why. Pt states that she does drink heavily but is unable to quantify the amount. She says when she went to [facility] recently she had been drinking heavily, but was not drunk and had no alcohol "in her body" by the time she got there. She denies feelings of anxiety/agitation. She admits to occasional minor blood coating her stool and states that she has painful hemorrhoids. REVIEW OF SYSTEMS: CONSTITUTIONAL: Absent: fever, chills, diaphoresis, generalized weakness, malaise, loss of appetite, weight change HEENT: Absent: rhinorrhea, nasal congestion, throat pain, throat swelling, difficulty swallowing, mouth swelling, ear pain, eye pain, visual changes CARDIOVASCULAR: Absent: chest pain, syncope, palpitations, irregular heart rate, lightheadedness , peripheral edema RESPIRATORY: Absent: cough, shortness of breath, dyspnea with exertion, orthopnea, wheezing, stridor, hemoptysis GASTROINTESTINAL:constipation, occasional scant blood Absent: abdominal pain, abdominal distension, nausea, vomiting, diarrhea, melena, hematochezia GENITOURINARY: Absent: dysuria, frequency, urgency, hesitancy, hematuria, flank pain, genital pain MUSCULOSKELETAL: Absent: myalgia, arthralgia, joint swelling, back pain, neck pain SKIN: Absent: rash, itching, pallor HEMATOLOGIC/IMMUNOLOGIC: Absent: easy bleeding, easy bruising, lymphadenopathy, frequent infections ENDOCRINE: Absent: unexplained weight gain, unexplained weight loss, heat intolerance, cold intolerance NEUROLOGIC: Absent: headache, focal weakness or paresthesias, dizziness, unsteady gait, seizure, mental status changes, bladder or bowel incontinence PSYCHIATRIC: Absent: anxiety, depression, suicidal or homicidal ideation, hallucinations. PHYSICAL EXAMINATION Vital Signs - 24 hr 07/13/19 07/13/19 07/13/19 18:16 20:00 22:00 Temperature 98.6 F 98.6 F 98.6 F Pulse Rate 85 81 Pulse Rate [ 82 Apical] Respiratory 19 20 20 Rate Blood Pressure 128/66 104/62 Blood Pressure 113/58 L [Right Arm] O2 Sat by Pulse 100 100 Oximetry (%) 07/14/19 07/14/19 07/14/19 00:00 02:00 06:00 Temperature 98.7 F 98.6 F 98.1 F Pulse Rate 83 82 89 Pulse Rate [ Apical] Respiratory 20 20 18 Rate Blood Pressure 120/59 L 118/62 112/66 Blood Pressure [Right Arm] O2 Sat by Pulse Oximetry (%) 07/14/19 07/14/19 07/14/19 08:48 08:49 13:43 Temperature 97.5 F L 98.3 F Pulse Rate 88 100 H Pulse Rate [ Apical] Respiratory 20 16 Rate Blood Pressure 122/71 112/56 L Blood Pressure [Right Arm] O2 Sat by Pulse 100 Oximetry (%) Gen: AAOx3, NAD HEENT: NCAT, EOMI Neck: no jvd noted Cardio: rrr, normal s1s2, no mrg Pulm: cta b/l Abd: obese, surgical scars, soft, nondistended, nontender Laboratory Results - last 24 hr 07/13/19 07/13/19 07/13/19 14:52 14:52 14:52 WBC 2.4 L RBC 1.86 L Hgb 7.5 L Hct 23.0 L MCV 123.8 H MCH 40.4 H MCHC 32.7 RDW 16.8 H Plt Count 15 L* MPV 8.6 Absolute Neuts (auto) 0.6 L Neutrophils % 24.7 L Neutrophils % (Manual) 19.0 L Band Neutrophils % 3.0 Lymphocytes % 65.3 H Lymphocytes % (Manual) 65.0 H Monocytes % 9.7 Monocytes % (Manual) 9 D Eosinophils % 0.2 Eosinophils % (Manual) 0.0 Basophils % 0.1 Basophils % (Manual) 0.0 Myelocytes % (Man) Promyelocytes % (Man) Blast Cells % (Manual) Nucleated RBC % 1 H Metamyelocytes Hypochromia Platelet Estimate Decreased Platelet Comment No clumping noted Polychromasia Anisocytosis Macrocytosis 2+ PT with INR 11.80 INR 1.00 Sodium 140 Potassium 4.0 Chloride 107 Carbon Dioxide 28 Anion Gap 4 L BUN 10.7 Creatinine 0.5 L Est GFR (CKD-EPI)AfAm 123.65 Est GFR (CKD-EPI)NonAf 106.68 Random Glucose 74 Calcium 8.4 L Total Bilirubin 0.5 AST 20 ALT 16 Alkaline Phosphatase 135 H Total Protein 5.8 L Albumin 2.7 L Stool Occult Blood Blood Type Antibody Screen 07/13/19 07/13/19 07/13/19 14:52 16:50 16:56 WBC RBC Hgb Hct MCV MCH MCHC RDW Plt Count MPV Absolute Neuts (auto) Neutrophils % Neutrophils % (Manual) Band Neutrophils % Lymphocytes % Lymphocytes % (Manual) Monocytes % Monocytes % (Manual) Eosinophils % Eosinophils % (Manual) Basophils % Basophils % (Manual) Myelocytes % (Man) Promyelocytes % (Man) Blast Cells % (Manual) Nucleated RBC % Metamyelocytes Hypochromia Platelet Estimate Platelet Comment Polychromasia Anisocytosis Macrocytosis PT with INR INR Sodium Potassium Chloride Carbon Dioxide Anion Gap BUN Creatinine Est GFR (CKD-EPI)AfAm Est GFR (CKD-EPI)NonAf Random Glucose Calcium Total Bilirubin AST ALT Alkaline Phosphatase Total Protein Albumin Stool Occult Blood Negative Blood Type A POSITIVE A POSITIVE Antibody Screen Negative Negative 07/14/19 07/14/19 08:35 08:35 WBC 1.4 L* RBC 1.76 L Hgb 7.2 L Hct 21.6 L MCV 122.8 H MCH 40.7 H MCHC 33.2 RDW 17.2 H Plt Count 58 L D MPV 8.4 Absolute Neuts (auto) 0.5 L Neutrophils % 32.7 L D Neutrophils % (Manual) 35.9 L Band Neutrophils % 0.0 Lymphocytes % 60.0 H Lymphocytes % (Manual) 52.4 H Monocytes % 6.8 Monocytes % (Manual) 3 L Eosinophils % 0.4 D Eosinophils % (Manual) 2.0 D Basophils % 0.1 Basophils % (Manual) 5.8 H* D Myelocytes % (Man) 0 Promyelocytes % (Man) 0 Blast Cells % (Manual) 0 Nucleated RBC % 0 Metamyelocytes 0 Hypochromia 1+ Platelet Estimate Decreased Platelet Comment Polychromasia 1+ Anisocytosis 1+ Macrocytosis 2+ PT with INR INR Sodium 140 Potassium 3.6 Chloride 107 Carbon Dioxide 27 Anion Gap 5 L BUN 9.8 Creatinine 0.5 L Est GFR (CKD-EPI)AfAm 123.65 Est GFR (CKD-EPI)NonAf 106.68 Random Glucose 88 Calcium 8.5 Total Bilirubin 0.7 AST 17 ALT 14 Alkaline Phosphatase 126 H Total Protein 5.5 L Albumin 2.4 L Stool Occult Blood Blood Type Antibody Screen Active Medications Generic Name Dose Route Start Last Admin Trade Name Freq PRN Reason Stop Dose Admin Acetaminophen 650 mg 07/14/19 05:54 07/14/19 12:47 Tylenol - PO 650 mg Q6H PRN Administration PAIN LEVEL 1-5 ASSESSMENT/PLAN: Pt is a 59 y/o F with PMH MDD w/ anxiety, anemia, thrombocytopenia, obesity, antecedents of orthopedic injuries (right knee + right ankle), tonsillectomy, cholecystectomy, lipoma (right axilla), gastric bypass (2004) who presents to the ER from the rehab facility (for EtOH) for thrombocytopenia and anemia. Pancytopenia with macrocytic/hyperchromic anemia -? myelosuppression 2/2 EtOH -? vit deficiency following gastric bypass and noncompliance with supplements -B12, folate, fe studies, retic count, HIV, MANE, RF, anti dsDNA -No active bleeding -Will transfuse/supplement as needed -monitor cbc Dispo: We will continue to follow the patient. Thank you for this consultative opportunity. Visit type - Emergency Visit Emergency Visit: No - New Patient This patient is new to me today: Yes Date on this admission: 07/14/19 - Critical Care Critical Care patient: No ATTENDING PHYSICIAN STATEMENT I saw and evaluated the patient. I reviewed the resident's note and discussed the case with the resident. I agree with the resident's findings and plan as documented. SUBJECTIVE: OBJECTIVE: ASSESSMENT AND PLAN:
[2019-07-15 08:06] LABS: BASO % 0.1 % (0-2.0); EOS % 0.3 % (0-4.5); HEMATOCRIT 19.8 % (32.4-45.2); LYMPH % 67.3 % (8-40); MCHC 33.6 g/dl (32.0-36.0); MEAN PLT VOLUME 7.7 fl (7.5-11.1); MONO % 9.1 % (3.8-10.2); NEUT % 23.2 % (42.8-82.8); PLATELET COUNT 46 K/MM3 (134-434); RBC 1.62 M/mm3 (3.60-5.2); RDW 17.5 % (11.6-15.6)
[2019-07-15 08:11] LABS: ALBUMIN 2.4 g/dl (3.4-5.0); BILIRUBIN,TOTAL 0.5 mg/dL (0.2-1); BLOOD UREA NITROGEN 11.4 mg/dL (7-18); CALCIUM 8.2 mg/dL (8.5-10.1); CREATININE 0.4 mg/dL (0.55-1.3); POTASSIUM 3.8 mmol/L (3.5-5.1); TOT PROT 5.2 g/dl (6.4-8.2)
[2019-07-15 08:16] LABS: HEMOGLOBIN 6.6 GM/dL (10.7-15.3)
[2019-07-15] MEDS ORDERED: PT OWN MED DRAWER 7, Y5N ONE (09:48)
[2019-07-15] MEDS ORDERED: FOLIC ACID 1 MG TABLET (FP) PO SCH (10:00)
[2019-07-15 10:25] LABS: ANISOCYTOSIS 1+; MACROCYTOSIS 2+; PLATELET ESTIMATE DECREASED; TEAR DROP CELLS 1+
--- NOTE | 2019-07-15 14:48 | PN ---
Progress Note, Physician History of Present Illness: doing well - Current Medication List Current Medications: Active Medications Acetaminophen (Tylenol -) 650 mg PO Q6H PRN PRN Reason: PAIN LEVEL 1-5 Last Admin: 07/14/19 12:47 Dose: 650 mg - Objective Vital Signs: Vital Signs Temperature 97.9 F 07/15/19 13:37 Pulse Rate 87 07/15/19 13:37 Respiratory Rate 14 07/15/19 13:37 Blood Pressure 118/55 L 07/15/19 13:37 O2 Sat by Pulse Oximetry (%) 100 07/15/19 09:00 Constitutional: Yes: No Distress HENT: Yes: Atraumatic Neck: Yes: Supple Cardiovascular: Yes: Regular Rate and Rhythm Respiratory: Yes: CTA Bilaterally Gastrointestinal: Yes: Normal Bowel Sounds Extremities: Yes: WNL Edema: No Peripheral Pulses WNL: Yes Neurological: Yes: Alert, Oriented Labs: CBC, BMP 07/15/19 05:30 07/15/19 05:30 INR, PTT INR 1.00 (0.83-1.09) 07/13/19 14:52 Problem List - Problems (1) Alcohol use disorder, mild, in early remission Assessment/Plan: was in [facility] Code(s): F10.11 - ALCOHOL ABUSE, IN REMISSION (2) Anemia Assessment/Plan: s/p prbc transfusion Code(s): D64.9 - ANEMIA, UNSPECIFIED Qualifiers: Anemia type: unspecified type Qualified Code(s): D64.9 - Anemia, unspecified (3) Thrombocytopenia Assessment/Plan: transfuse platelets heme consult Code(s): D69.6 - THROMBOCYTOPENIA, UNSPECIFIED Assessment/Plan cbc much improved wbc much better
--- NOTE | 2019-07-15 17:50 | PN ---
Teaching Attending Note Name of Resident: Octaviano Rodriguez ATTENDING PHYSICIAN STATEMENT I saw and evaluated the patient. I reviewed the resident's note and discussed the case with the resident. I agree with the resident's findings and plan as documented. SUBJECTIVE: Patient seen and examined 59 year old heavy drinker of greater than 2 quarts of wine daily presents with pancytopenia. History of gastric bypass in 2004. HAS NORMAL b-12, FOLATE, tsh, CORRECTED RETIC --LOW, AND NORMAL LFT'S ( ALK PHOS ELEVATED -to check GGTP) Will need to evaluate for MDS, Check GGTP, Sono of liver to begin. Patient states she last drank > 2 weeks earlier. Last Vital Signs Temp Pulse Resp BP Pulse Ox 97.9 F 87 14 118/55 L 100 07/15/19 13:37 07/15/19 13:37 07/15/19 13:37 07/15/19 13:37 07/15/19 09:00 HEENT: STANLEY, EOM Intact Oropharynx: No thrush, No mucositis Neck: Supple Nodes: Without adenopathy Breasts: Without masses Cor: RSR, No murmurs, No gallops Lungs: Clear to P&A Abd: Soft, Normal bowel sounds, No organomegaly Ext:No significant edema Skin: No rashes, Integument intact CBC, BMP 07/15/19 05:30 07/15/19 05:30 S/P one unit of packed cells. Impression : Pancytopenia ?etiology For flow cytometry May need Bone marrow evaluation. OBJECTIVE: ASSESSMENT AND PLAN:
[2019-07-15 20:10] LABS: BASO % 0.1 % (0-2.0); EOS % 0.2 % (0-4.5); HEMATOCRIT 24.6 % (32.4-45.2); HEMOGLOBIN 8.2 GM/dL (10.7-15.3); LYMPH % 59.5 % (8-40); MCH 38.1 pg (25.7-33.7); MCHC 33.3 g/dl (32.0-36.0); MEAN CELL VOLUME 114.5 fl (80-96); MEAN PLT VOLUME 7.9 fl (7.5-11.1); MONO % 9.1 % (3.8-10.2); NEUT % 31.1 % (42.8-82.8); PLATELET COUNT 45 K/MM3 (134-434); RBC 2.15 M/mm3 (3.60-5.2); RDW 25.3 % (11.6-15.6); WHITE BLOOD COUNT 2.7 K/mm3 (4.0-10.0)
[2019-07-15] MEDS ORDERED: MELATONIN 5 MG TABLETS PO ONE (21:45)
--- NOTE | 2019-07-16 16:16 | PN ---
Progress Note, Physician - Current Medication List Current Medications: Active Medications Acetaminophen (Tylenol -) 650 mg PO Q6H PRN PRN Reason: PAIN LEVEL 1-5 Last Admin: 07/14/19 12:47 Dose: 650 mg - Objective Vital Signs: Vital Signs Temperature 98.4 F 07/16/19 13:43 Pulse Rate 82 07/16/19 13:43 Respiratory Rate 14 07/16/19 13:43 Blood Pressure 111/58 L 07/16/19 13:43 O2 Sat by Pulse Oximetry (%) 100 07/16/19 09:32 Constitutional: Yes: No Distress HENT: Yes: Atraumatic Neck: Yes: Supple Cardiovascular: Yes: Regular Rate and Rhythm Respiratory: Yes: CTA Bilaterally Gastrointestinal: Yes: Normal Bowel Sounds Extremities: Yes: WNL Edema: No Peripheral Pulses WNL: Yes Neurological: Yes: Alert, Oriented Labs: CBC, BMP 07/15/19 19:20 07/15/19 05:30 INR, PTT INR 1.00 (0.83-1.09) 07/13/19 14:52 Problem List - Problems (1) Alcohol use disorder, mild, in early remission Assessment/Plan: was in rehab [place] [facility] Code(s): F10.11 - ALCOHOL ABUSE, IN REMISSION (2) Anemia Assessment/Plan: possibly due to etoh? will transfuse heme consult for flow cytometry Code(s): D64.9 - ANEMIA, UNSPECIFIED Qualifiers: Anemia type: unspecified type Qualified Code(s): D64.9 - Anemia, unspecified (3) Thrombocytopenia Code(s): D69.6 - THROMBOCYTOPENIA, UNSPECIFIED (4) Pancytopenia Code(s): D61.818 - OTHER PANCYTOPENIA (5) Alcohol-induced anxiety disorder Code(s): F10.980 - ALCOHOL USE, UNSP WITH ALCOHOL-INDUCED ANXIETY DISORDER (6) Insomnia Code(s): G47.00 - INSOMNIA, UNSPECIFIED
[2019-07-17 13:29] LABS: BASO % 0.1 % (0-2.0); EOS % 0.1 % (0-4.5); HEMATOCRIT 24.7 % (32.4-45.2); HEMOGLOBIN 8.2 GM/dL (10.7-15.3); LYMPH % 53.7 % (8-40); MCH 38.5 pg (25.7-33.7); MCHC 33.2 g/dl (32.0-36.0); MEAN CELL VOLUME 116.1 fl (80-96); MEAN PLT VOLUME 7.9 fl (7.5-11.1); MONO % 9.4 % (3.8-10.2); NEUT % 36.7 % (42.8-82.8); RBC 2.13 M/mm3 (3.60-5.2); RDW 25.3 % (11.6-15.6); WHITE BLOOD COUNT 2.3 K/mm3 (4.0-10.0)
[2019-07-17 13:34] LABS: PLATELET COUNT 36 K/MM3 (134-434)
[2019-07-17 14:02] LABS: ALBUMIN 2.4 g/dl (3.4-5.0); BILIRUBIN,TOTAL 0.4 mg/dL (0.2-1); BLOOD UREA NITROGEN 13.3 mg/dL (7-18); CALCIUM 8.3 mg/dL (8.5-10.1); CREATININE 0.6 mg/dL (0.55-1.3); TOT PROT 5.6 g/dl (6.4-8.2)
[2019-07-17 15:40] LABS: ANISOCYTOSIS 2+; MACROCYTOSIS 2+; PLATELET ESTIMATE DECREASED
[2019-07-17 16:18] VITALS: BP 106/57; PULSE 86; TEMP 98.7
--- NOTE | 2019-07-17 17:04 | PN ---
Physical Exam: SUBJECTIVE: Patient seen and examined at bedside. No acute events. Feels well. OBJECTIVE: Vital Signs Period Temp Pulse Resp BP Sys/Zayas Pulse Ox Last 24 Hr 97.9 F-98.8 F 80-93 16-18 94-110/48-61 97-98 Gen: AAOx3, NAD HEENT: NCAT, EOMI Neck: no jvd noted Cardio: rrr, normal s1s2, no mrg Pulm: cta b/l Abd: obese, surgical scars, soft, nondistended, nontender Breast: no lumps/nodules noted Laboratory Results - last 24 hr 07/15/19 07/16/19 07/17/19 05:30 06:45 13:20 WBC 2.3 L RBC 2.13 L Hgb 8.2 L Hct 24.7 L MCV 116.1 H MCH 38.5 H MCHC 33.2 RDW 25.3 H Plt Count 36 L* MPV 7.9 Absolute Neuts (auto) 0.8 L Neutrophils % 36.7 L Lymphocytes % 53.7 H Monocytes % 9.4 Eosinophils % 0.1 Basophils % 0.1 Nucleated RBC % 1 H Hypochromia 1+ Platelet Estimate Decreased Polychromasia 1+ Anisocytosis 2+ Macrocytosis 2+ Schistocytes 1+ Sodium Potassium Chloride Carbon Dioxide Anion Gap BUN Creatinine Est GFR (CKD-EPI)AfAm Est GFR (CKD-EPI)NonAf Random Glucose Calcium Total Bilirubin AST ALT Alkaline Phosphatase Total Protein Albumin IgG 1216 IgA 379 H IgM 225 H MANE Screen Negative Free [place]ilde[place] LC, Quant 33.0 H Free Lambda LC, Quant 22.2 Free [place]/Lambda Ratio 1.49 07/17/19 13:20 WBC RBC Hgb Hct MCV MCH MCHC RDW Plt Count MPV Absolute Neuts (auto) Neutrophils % Lymphocytes % Monocytes % Eosinophils % Basophils % Nucleated RBC % Hypochromia Platelet Estimate Polychromasia Anisocytosis Macrocytosis Schistocytes Sodium 138 Potassium 4.0 Chloride 106 Carbon Dioxide 27 Anion Gap 6 L BUN 13.3 Creatinine 0.6 Est GFR (CKD-EPI)AfAm 116.45 Est GFR (CKD-EPI)NonAf 100.47 Random Glucose 106 Calcium 8.3 L Total Bilirubin 0.4 AST 13 L ALT 15 Alkaline Phosphatase 131 H Total Protein 5.6 L Albumin 2.4 L IgG IgA IgM MANE Screen Free [place]ilde[place] LC, Quant Free Lambda LC, Quant Free [place]ildebr[place]/Lambda Ratio Active Medications Generic Name Dose Route Start Last Admin Trade Name Freq PRN Reason Stop Dose Admin Acetaminophen 650 mg 07/14/19 05:54 07/14/19 12:47 Tylenol - PO 650 mg Q6H PRN Administration PAIN LEVEL 1-5 ASSESSMENT/PLAN: Visit type - Emergency Visit Emergency Visit: No - New Patient This patient is new to me today: No - Critical Care Critical Care patient: No - Discharge Referral Referred to [facility] Med [facility] No ATTENDING PHYSICIAN STATEMENT I saw and evaluated the patient. I reviewed the resident's note and discussed the case with the resident. I agree with the resident's findings and plan as documented. SUBJECTIVE: OBJECTIVE: ASSESSMENT AND PLAN:
--- NOTE | 2019-07-17 19:22 | PATH ---
Surgical Pathology Report Patient Name: STEPHANY SHEEHAN V. [facility]. Rec. #: [id number] /Age/Gender: 1960 (Age: 59) / F Account: [id number] Location: [facility] PEDS/ADOL Taken: 07/16/2019 Received: 07/16/2019 Reported: 07/17/2019 Physicians: Romulo Cross M.D. Specimen(s) Received PERIPHERAL BLOOD Clinical History Leukopenia, rule out MDS Final Diagnosis COMPREHENSIVE FLOW PANEL performed and interpreted at [facility] laboratory, [place], [place] ([id number]) shows the following: INTERPRETATION: Granulocytopenia with no discrete atypical immunophenotypic findings seen. PHENOTYPE: Granulocytes are proportionally decreased but exhibit immunophenotypic evidence of full maturation with no detectable aberrant marker expression. Blasts are not increased. Lymphocytes are proportionally increased and include polyclonal B cells, NK cells and immunophenotypically normal CD4+ and CD8+ T cells. No evidence of a clonal lymphoid expansion. Monocytes express partial aberrant CD56, a non-specific finding. CYTOMORPHOLOGY: Smears from flow sample show no increase in myeloblasts or atypical lymphocytes. MYELODYSPLASIA FISH PANEL performed and interpreted at [facility] in [place], [place] ([id number]) shows the following. INTERPRETATION: No evidence of deletion 5q or monosomy 5 is present. No evidence of deletion 7q or monosomy 7 is present. No evidence of trisomy 8 (+8) is present. No evidence of deletion 13q14.2 is present. No evidence of a rearrangement of 11q23. No evidence of a deletion of the p53 (17p13) locus. No evidence of deletion 20q12 is present. Cytogenetics pending and will be reported separately. See [facility] reports for additional details. Electronically Signed Nivia Salmeron M.D. Gross Description Received are 2 green top tubes and 2 lavender top tubes of blood which are sent to [facility]. 07/16/2019 saudi07/16/2019
--- NOTE | 2019-07-17 20:31 | DS ---
Physical Examination Vital Signs: Vital Signs Temperature 98.7 F 07/17/19 13:00 Pulse Rate 86 07/17/19 13:00 Respiratory Rate 16 07/17/19 13:00 Blood Pressure 106/57 L 07/17/19 13:00 O2 Sat by Pulse Oximetry (%) 97 07/17/19 09:00 Constitutional: Yes: No Distress HENT: Yes: Atraumatic Neck: Yes: Supple Cardiovascular: Yes: Regular Rate and Rhythm Respiratory: Yes: CTA Bilaterally Gastrointestinal: Yes: Normal Bowel Sounds Extremities: Yes: WNL Neurological: Yes: Alert, Oriented Labs: CBC, BMP 07/17/19 13:20 07/17/19 13:20 Discharge Summary Problems reviewed: Yes Reason For Visit: ANEMIA Condition: Improved - Instructions Diet, Activity, Other Instructions: follow up with dr bejarano for further management Referrals: ON STAFF,NOT [Primary Care Provider] - Romulo Bejarano MD [Staff Physician] - Disposition: HOME - Home Medications Comprehensive Discharge Medication List: Ambulatory Orders Folic Acid - 1 mg PO DAILY #30 tablet 07/15/19 dc home follow up patients own biztalk developer dr bejarano number also given
[2019-07-18 04:09] LABS: FREE KAP CHN UR 6.84 mg/L (1.35-24.19); KAPPA LAMBDA RATIO URIN 14.55 (2.04-10.37)
== END 2019-07-17 19:00 | disposition home or self-care (01) | DRG 660 ==
LOC: JER 13:59 → JERBED 17:59 → J8W 21:09 → J4S 07-14 05:32
PROVIDERS: ADMIT Internal Medicine; ATTEND Internal Medicine
PROC: 30233R1 Transfusion of Nonautologous Platelets into Peripheral Vein, Percutaneous Approach (ICD-10-PCS; 2019-07-13)
PROC: 30233N1 Transfusion of Nonautologous Red Blood Cells into Peripheral Vein, Percutaneous Approach (ICD-10-PCS; principal; 2019-07-15)
DX: D61.818 Other pancytopenia (principal); D69.6 Thrombocytopenia, unspecified; D64.9 Anemia, unspecified; E66.9 Obesity, unspecified; Z68.39 Body mass index [BMI] 39.0-39.9, adult; K92.2 Gastrointestinal hemorrhage, unspecified; F41.8 Other specified anxiety disorders; F10.20 Alcohol dependence, uncomplicated; D62 Acute posthemorrhagic anemia
CPT/HCPCS: 36415; 36430; 76700-TC; 80053; 82272; 82607; 82728; 82746; 82784; 83540; 83550; 83883; 84155; 84165; 84439; 84443; 85025; 85044; 85610; 86038; 86225; 86431; 86850; 86900; 86901; 86922; 87389; 88300-TC; 93005; 93010; 99285-25; P9034; P9038; P9058